=== PATIENT | female | born 1990 | race Caucasian/White ===

== ENCOUNTER 2021-12-31 14:45 | Emergency (ER) | payer MEDICAID ==
[~2021-12-31] VITALS: Ht 160 cm; Wt 52.3 kg
[2021-12-31 14:52] VITALS: BP 97/66; TEMP 98.8
[2021-12-31] MEDS ORDERED: PEN-VEE K500 MG PO ×2 (15:16→15:21)
[2021-12-31 15:35] VITALS: PULSE 78
== END 2021-12-31 15:35 | disposition home or self-care (01) ==
LOC: COL.ER 14:45
DX: K02.9 Dental caries, unspecified (principal); F17.210 Nicotine dependence, cigarettes, uncomplicated; Z28.310 Unvaccinated for COVID-19; Z88.6 Allergy status to analgesic agent

== ENCOUNTER 2022-01-05 16:10 | Emergency (ER) | payer MEDICAID ==
[~2022-01-05] VITALS: Ht 160 cm; Wt 52.3 kg
[~2022-01-05 16:10] MED LIST: PEN-VEE K500 MG PO
[2022-01-05 16:20] VITALS: TEMP 99.6
[2022-01-05 17:10] LABS: BASO # 0.1 K/mm3 (0.0-0.2); BASO % 0.4 % (0.0-2.0); EOS # 0.2 K/mm3 (0.0-0.7); GRAN # 15.6 K/mm3 (1.4-6.5); GRAN % 78.8 % (42.2-75.2); HEMATOCRIT 38.6 % (37.0-47.0); LYMPH # 2.8 K/mm3 (1.2-3.4); LYMPH % 14.4 % (20.0-51.0); MEAN CELL VOLUME 92 fl (80.0-100.0); MEAN CORPUSCULAR HEMOGLOBIN 31 pg (27-31); MEAN CORPUSCULAR HGB CONC 34 g/dl (33.0-37.0); MEAN PLATELET VOLUME 10.8 fl (7.4-10.4); PLATELET COUNT 369 K/mm3 (130-400); RED BLOOD COUNT 4.22 M/mm3 (4.10-5.30); REDCELL DISTRIBUTION WIDTH-CV 11.8 % (11.5-14.5)
[2022-01-05 17:23] LABS: C-REACTIVE PROTEIN 9.7 mg/dL (0.00-0.50); CALCIUM 8.9 mg/dL (8.4-10.2); CREATININE, serum 0.82 mg/dL (0.57-1.11); POTASSIUM 3.4 mmol/L (3.5-4.5)
[2022-01-05] MEDS ORDERED: ZOFRAN ODT4 MG PO (17:41)
[2022-01-05] MEDS ORDERED: CLEOCIN HC150 MG/CAP PO (17:41)
[2022-01-05] MEDS ORDERED: NAPROSYN500 MG PO (17:41)
[2022-01-05] MEDS ORDERED: ROXICODONE 55 MG/TAB PO (17:41)
[2022-01-05 17:54] VITALS: BP 100/59
[2022-01-05 18:35] VITALS: PULSE 72
== END 2022-01-05 18:36 | disposition home or self-care (01) ==
LOC: COL.ER 16:10
PROVIDERS: Emergency Medicine
DX: K11.21 Acute sialoadenitis (principal); R65.10 Systemic inflammatory response syndrome (SIRS) of non-infectious origin without acute organ dysfunction; F17.210 Nicotine dependence, cigarettes, uncomplicated; Z88.1 Allergy status to other antibiotic agents; Z88.6 Allergy status to analgesic agent; Z28.310 Unvaccinated for COVID-19
CPT/HCPCS: J1100; J1885; J2405

== ENCOUNTER 2023-06-09 18:02 | Emergency (ER) | payer SELFPAY ==
[~2023-06-09] VITALS: Ht 160 cm; Wt 52.3 kg
[~2023-06-09 18:02] MED LIST changes: +CLEOCIN HC150 MG/CAP PO; +NAPROSYN500 MG PO; +ROXICODONE 55 MG/TAB PO; +ZOFRAN ODT4 MG PO
[2023-06-09 18:15] VITALS: TEMP 98.4
[2023-06-09 19:13] VITALS: BP 100/62; PULSE 80
== END 2023-06-09 19:15 | disposition home or self-care (01) ==
LOC: COL.ER 18:02
DX: J06.9 Acute upper respiratory infection, unspecified (principal)